=== PATIENT | male | born 1970 | race Caucasian/White ===

== ENCOUNTER 2017-06-01 08:59 | Day surgery (SDC) | payer OTHER ==
[2017-05-28 13:13] VITALS: BMI 29.8
[~2017-06-01 08:59] MED LIST: LACTATED RINGERS 1,000 ML IV SCH; LIDOCAINE 1% 20 ML VIAL (10MG/ML) FOR IV START INTRADERMA PRN
[2017-06-01 10:11] VITALS: TEMP 98.1
[2017-06-01] MEDS ORDERED: PROPOFOL 10 MG/ML 20 ML VIAL IV ONE (10:23)
[2017-06-01] MEDS ORDERED: LIDOCAINE 1% INJ 10MG/ML (20 ML MDV) ONE (10:23)
[2017-06-01 10:49] VITALS: RESP 16
--- NOTE | 2017-06-01 10:52 | P.PCN ---
Date of Procedure: 06/01/17 Preoperative Diagnosis: Postoperative Diagnosis: Procedure(s) Performed: Procedure: Total colonoscopy. Preoperative diagnosis: Screening for neoplasia, patient has family history of neoplastic polyps in his father. Postoperative diagnosis: Exam within normal limits. Preparation: HalfLytely prep. Sedation: Was provided by anesthesia. Brief clinical history: The patient is a 47-year-old male who is referred for this evaluation for screening for neoplasia age being his risk factor as well as family history of neoplastic polyps in his father. The patient has no abdominal complaints, bleeding or anemia. This would be his first colonoscopy. Procedure: With the patient on his left lateral decubitus position and after informed consent and adequate sedation, the perianal area was inspected and it did not show any fissures or fistulas. There were no masses felt on digital rectal examination. The Olympus CFQ 160L video colonoscope was then inserted in the rectum in the usual fashion and advanced to the cecum. The mucosa appeared healthy. No abnormalities were seen including any polyps or diverticular disease. I retroflexed the endoscope in the rectum before the endoscope was withdrawn. The patient tolerated the procedure well. Plan: The patient was reassured. With his family history I recommended repeat exam in 5 years. He will follow up with you as planned. Implants: Indications for Procedure: Operative Findings: Description of Procedure:
[2017-06-01 11:07] VITALS: PULSE 52
[2017-06-01 11:08] VITALS: BP 125/79
== END 2017-06-01 11:20 | disposition home or self-care (01) ==
LOC: ORWHC2ENDO 08:59
DX: Z12.11 Encounter for screening for malignant neoplasm of colon (principal); Z83.71 Family history of colonic polyps; I10 Essential (primary) hypertension; Z86.73 Personal history of transient ischemic attack (TIA), and cerebral infarction without residual deficits; Z79.899 Other long term (current) drug therapy
CPT/HCPCS: J2001; J2704; G0105

== ENCOUNTER 2018-08-11 14:43 | Emergency (ER) | payer BC, OTHER ==
[2018-08-11 14:52] VITALS: BP 137/93
--- NOTE | 2018-08-11 15:19 | ED ---
General Adult HPI - General Chief complaint: Extremity Problem,Nontraumatic Stated complaint: Poss dvt Time Seen by Provider: 08/11/18 14:58 Source: patient, RN notes reviewed Mode of arrival: wheelchair Limitations: no limitations - History of Present Illness Initial comments: Patient 48-year-old male presented to the emergency room today with a chief complaint of left thigh pain that started last approximately 3:30 in the morning. 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 He states he was sitting at his desk more last night. He states he was driving home from work and felt some discomfort to the left medial 5. He states that when he pushes he feels a burning sensation. Small spot that is firm. Patient denies any injury or trauma. He states he did try to follow-up with family doctor who is out of the office and was advised by the staff to come here to the emergency room. Patient denies any other complaint. Denies any history of blood clots. States is not on any blood thinner. Patient denies any recent fever, chills, shortness of breath, chest pain, back pain, abdominal pain, headaches or visual changes, or any other complaints. - Related Data Home Medications Medication Instructions Recorded Confirmed Losartan Potassium [Cozaar] 50 mg PO HS 05/07/15 08/11/18 Previous Rx's Medication Instructions Recorded Ibuprofen [Motrin] 600 mg PO Q6HR PRN #30 day 08/11/18 Allergies Allergy/AdvReac Type Severity Reaction Status Date / Time No Known Allergies Allergy Verified 08/11/18 16:33 Review of Systems ROS Statement: Those systems with pertinent positive or pertinent negative responses have been documented in the HPI. ROS Other: All systems not noted in ROS Statement are negative. Past Medical History Past Medical History: CVA/TIA, Hypertension Additional Past Medical History / Comment(s): POSSIBLE TIA 2 YRS AGO., TENDONITIS ELBOW. History of Any Multi-Drug Resistant Organisms: None Reported Past Surgical History: Hernia Repair, Orthopedic Surgery Additional Past Surgical History / Comment(s): RIGHT MENISCUS REPAIR, LEFT ROTATOR CUFF. Additional Past Anesthesia/Blood Transfusion Reaction / Comment(s): SPINAL HEADACHE Past Psychological History: No Psychological Hx Reported Smoking Status: Former smoker Past Alcohol Use History: Rare Past Drug Use History: None Reported - Past Family History Mother Family Medical History: Cancer Additional Family Medical History / Comment(s): lung cancer Father Family Medical History: Cancer Additional Family Medical History / Comment(s): renal Sister(s) Family Medical History: No Reported History Son(s) Family Medical History: No Reported History General Exam - General Exam Comments Initial Comments: General: The patient is awake and alert, in no distress, and does not appear acutely ill. Neck: The neck is supple, there is no tenderness or JVD. Cardiovascular: There is a regular rate and rhythm. No murmur, rub or gallop is appreciated. Respiratory: Lungs are clear to auscultation, respirations are non-labored, breath sounds are equal. No wheezes, stridor, rales, or rhonchi. Musculoskeletal: Patient does have a normal appearance of the left thigh with no obvious swelling, redness. There is no increased warmth. Small area medially that is firm on palpation but no fluctuance or sign for abscess. Patient shows full range of motion. No bony tenderness. Sensations are intact. pedal pulse is 2+. Neurological: A&O x 3. CN II-XII intact, There are no obvious motor or sensory deficits. Coordination appears grossly intact. Speech is normal. Skin: Skin is warm and dry and no rashes or lesions are noted. Psychiatric: Normal mood and affect. Limitations: no limitations Course Vital Signs 08/11/18 14:50 Temperature 98.1 F Pulse Rate 68 Respiratory 20 Rate Blood Pressure 137/93 O2 Sat by Pulse 98 Oximetry Medical Decision Making - Medical Decision Making Ultrasound REVIEW NEGATIVE FOR ANY EVIDENCE OF DVT. NO OTHER ACUTE ABNORMALITY. THERE IS NO REDNESS TO THE AREA. NO SIGN OF INFECTION. PATIENT IS ADVISED TO USE ANTI-INFLAMMATORIES FOR PAIN AND SYMPTOMS. ADVISED TO FOLLOW- UP FAMILY PHYSICIAN OVER THE NEXT 2 DAYS. ADVISED RETURN IF ANY SYMPTOMS INCREASE WORSEN OR FOR ANY CONCERNS. Disposition Clinical Impression: Leg pain Disposition: HOME SELF-CARE Condition: Good Instructions: Leg Pain (ED) Additional Instructions: Please use medication as discussed. Please follow-up with family doctor in the next 2 days of symptoms have not improved. Please return to emergency room if the symptoms increase or worsen or for any other concerns. Prescriptions: Ibuprofen [Motrin] 600 mg PO Q6HR PRN #30 day PRN Reason: Pain Is patient prescribed a controlled substance at d/c from ED?: No Referrals: Vernon Gutierres MD [Primary Care Provider] - 1-2 days Time of Disposition: 16:39
--- NOTE | 2018-08-11 16:27 | US ---
EXAMINATION TYPE: US venous doppler duplex LE LT DATE OF EXAM: 08/11/2018 3:14 PM COMPARISON: NONE CLINICAL HISTORY: Pain. SIDE PERFORMED: Left TECHNIQUE: The lower extremity deep venous system is examined utilizing real time linear array sonog hoang with graded compression, doppler sonography and color-flow sonography. VESSELS IMAGED: External Iliac Vein (EIV) Common Femoral Vein Deep Femoral Vein Greater Saphenous Vein * Femoral Vein Popliteal Vein Small Saphenous Vein * Proximal Calf Veins (* superficial vessels) There is normal flow, compressibility, vascular waveforms. Left Leg: Negative for DVT IMPRESSION: No evident deep venous thrombosis at or above the left knee.
[2018-08-11 16:46] VITALS: PULSE 70; RESP 18; TEMP 98.3
== END 2018-08-11 16:45 | disposition home or self-care (01) ==
LOC: EC 14:43
DX: M79.652 Pain in left thigh (principal); I10 Essential (primary) hypertension; Z86.73 Personal history of transient ischemic attack (TIA), and cerebral infarction without residual deficits; Z87.891 Personal history of nicotine dependence; Z79.899 Other long term (current) drug therapy
CPT/HCPCS: 99283

== ENCOUNTER 2019-03-31 12:41 | Observation (INO) | payer BC ==
[2019-03-31] MEDS ORDERED: SODIUM CHLORIDE 0.9% 1,000 ML IV ONE (12:47)
--- NOTE | 2019-03-31 12:52 | ED ---
Altered Mental Status HPI - General Stated Complaint: Confusion Time Seen by Provider: 03/31/19 12:41 Source: patient, EMS, RN notes reviewed Mode of arrival: EMS - History of Present Illness Initial Comments: This is a 49-year-old male with a prior history of TIA also history of hypertension who woke up around 10:30 this morning took a shower did has memory lapses within that timeframe. His did call EMS he was brought here for evaluation no trauma reported no fevers chills nausea vomiting sweats no blurry vision no recent change in medications or diet patient does not smoke or drink. No drugs reported. No palpitations no other modifying factors MD Complaint: altered mental status, confusion - Related Data Home Medications Medication Instructions Recorded Confirmed Losartan Potassium [Cozaar] 50 mg PO HS 05/07/15 03/31/19 Allergies Allergy/AdvReac Type Severity Reaction Status Date / Time No Known Allergies Allergy Verified 03/31/19 12:49 Review of Systems ROS Statement: Those systems with pertinent positive or pertinent negative responses have been documented in the HPI. ROS Other: All systems not noted in ROS Statement are negative. Past Medical History Past Medical History: CVA/TIA, Hypertension Additional Past Medical History / Comment(s): POSSIBLE TIA 2 YRS AGO., TENDONITIS ELBOW. History of Any Multi-Drug Resistant Organisms: None Reported Past Surgical History: Hernia Repair, Orthopedic Surgery Additional Past Surgical History / Comment(s): RIGHT MENISCUS REPAIR, LEFT ROTATOR CUFF. Additional Past Anesthesia/Blood Transfusion Reaction / Comment(s): SPINAL HEADACHE Past Psychological History: No Psychological Hx Reported Smoking Status: Former smoker Past Alcohol Use History: Rare Past Drug Use History: None Reported - Past Family History Mother Family Medical History: Cancer Additional Family Medical History / Comment(s): lung cancer Father Family Medical History: Cancer Additional Family Medical History / Comment(s): renal Sister(s) Family Medical History: No Reported History Son(s) Family Medical History: No Reported History General Exam - General Exam Comments Initial Comments: This is a well-developed well-nourished awake alert oriented times 3 male General appearance: alert, in no apparent distress Head exam: Present: atraumatic, normocephalic, normal inspection Eye exam: Present: normal appearance, PERRL, EOMI. Absent: scleral icterus, conjunctival injection, periorbital swelling ENT exam: Present: normal exam, mucous membranes moist Neck exam: Present: normal inspection, full ROM, other (No stridor JVD or bruits). Absent: tenderness, meningismus, lymphadenopathy Respiratory exam: Present: normal lung sounds bilaterally. Absent: respiratory distress, wheezes, rales, rhonchi, stridor Cardiovascular Exam: Present: regular rate, normal rhythm, normal heart sounds. Absent: systolic murmur, diastolic murmur, rubs, gallop, clicks GI/Abdominal exam: Present: soft, normal bowel sounds. Absent: distended, tenderness, guarding, rebound, rigid, bruit, pulsatile mass Extremities exam: Present: normal inspection, full ROM, normal capillary refill. Absent: tenderness, pedal edema, joint swelling, calf tenderness Back exam: Present: normal inspection Neurological exam: Present: alert, oriented X3, CN II-XII intact, motor sensory deficit (Very slight sensory deficits to the dorsal aspect of the right hand forearm compared to the left) Psychiatric exam: Present: normal affect, normal mood Skin exam: Present: warm, dry, intact, normal color. Absent: rash Course Vital Signs 03/31/19 03/31/19 03/31/19 12:45 12:49 13:00 Temperature 97.9 F Pulse Rate 67 78 60 Respiratory 18 18 20 Rate Blood Pressure 135/84 135/84 O2 Sat by Pulse 96 96 97 Oximetry 03/31/19 03/31/19 03/31/19 13:15 13:30 13:45 Temperature Pulse Rate 64 68 62 Respiratory 18 20 18 Rate Blood Pressure 135/87 131/95 153/93 O2 Sat by Pulse 96 97 97 Oximetry 03/31/19 03/31/19 03/31/19 14:00 14:15 14:30 Temperature Pulse Rate 68 63 66 Respiratory Rate Blood Pressure 145/84 137/90 146/94 O2 Sat by Pulse 96 96 96 Oximetry 03/31/19 15:00 Temperature Pulse Rate 65 Respiratory 18 Rate Blood Pressure 147/91 O2 Sat by Pulse 99 Oximetry Medical Decision Making - Medical Decision Making I did reevaluate patient on multiple occasions also symptoms have resolved he did later state he has some right facial numbness also resolved. Case is discussed with him and his will be admitted for evaluation of suspected TIA I did discuss case Dr. Rich. Neurology will be consulted - Lab Data Result diagrams: 03/31/19 13:06 03/31/19 13:06 Lab Results 03/31/19 03/31/19 03/31/19 Range/Units 13:06 13:06 13:06 WBC 5.2 (3.8-10.6) k/uL RBC 5.32 (4.30-5.90) m/uL Hgb 15.1 (13.0-17.5) gm/dL Hct 44.8 (39.0-53.0) % MCV 84.2 (80.0-100.0) fL MCH 28.4 (25.0-35.0) pg MCHC 33.7 (31.0-37.0) g/dL RDW 13.3 (11.5-15.5) % Plt Count 236 (150-450) k/uL Neutrophils % 59 % Lymphocytes % 27 % Monocytes % 8 % Eosinophils % 2 % Basophils % 0 % Neutrophils # 3.1 (1.3-7.7) k/uL Lymphocytes # 1.4 (1.0-4.8) k/uL Monocytes # 0.4 (0-1.0) k/uL Eosinophils # 0.1 (0-0.7) k/uL Basophils # 0.0 (0-0.2) k/uL PT (9.0-12.0) sec INR (<1.2) APTT (22.0-30.0) sec Sodium 140 (137-145) mmol/L Potassium 4.0 (3.5-5.1) mmol/L Chloride 105 (98-107) mmol/L Carbon Dioxide 25 (22-30) mmol/L Anion Gap 10 mmol/L BUN 12 (9-20) mg/dL Creatinine 0.92 (0.66-1.25) mg/dL Est GFR (CKD-EPI)AfAm >90 (>60 ml/min/1.73 sqM) Est GFR (CKD-EPI)NonAf >90 (>60 ml/min/1.73 sqM) Glucose 109 H (74-99) mg/dL Calcium 8.7 (8.4-10.2) mg/dL Magnesium 2.1 (1.6-2.3) mg/dL Total Bilirubin 0.9 (0.2-1.3) mg/dL AST 36 (17-59) U/L ALT 53 (21-72) U/L Alkaline Phosphatase 77 (38-126) U/L Ammonia 16 (<30) umol/L Creatine Kinase 224 H (55-170) U/L Troponin I (0.000-0.034) ng/mL Total Protein 6.8 (6.3-8.2) g/dL Albumin 4.2 (3.5-5.0) g/dL Urine Color Urine Appearance (Clear) Urine pH (5.0-8.0) Ur Specific [place] (1.001-1.035) Urine Protein (Negative) Urine Glucose (UA) (Negative) Urine Ketones (Negative) Urine Blood (Negative) Urine Nitrite (Negative) Urine Bilirubin (Negative) Urine Urobilinogen (<2.0) mg/dL Ur Leukocyte Esterase (Negative) Urine Opiates Screen (NotDetected) Ur Oxycodone Screen (NotDetected) Urine Methadone Screen (NotDetected) Ur Propoxyphene Screen (NotDetected) Ur Barbiturates Screen (NotDetected) U Tricyclic Antidepress (NotDetected) Ur Phencyclidine Scrn (NotDetected) Ur Amphetamines Screen (NotDetected) U Methamphetamines Scrn (NotDetected) U Benzodiazepines Scrn (NotDetected) Urine Cocaine Screen (NotDetected) U Marijuana (THC) Screen (NotDetected) 03/31/19 03/31/19 03/31/19 Range/Units 13:06 13:06 14:50 WBC (3.8-10.6) k/uL RBC (4.30-5.90) m/uL Hgb (13.0-17.5) gm/dL Hct (39.0-53.0) % MCV (80.0-100.0) fL MCH (25.0-35.0) pg MCHC (31.0-37.0) g/dL RDW (11.5-15.5) % Plt Count (150-450) k/uL Neutrophils % % Lymphocytes % % Monocytes % % Eosinophils % % Basophils % % Neutrophils # (1.3-7.7) k/uL Lymphocytes # (1.0-4.8) k/uL Monocytes # (0-1.0) k/uL Eosinophils # (0-0.7) k/uL Basophils # (0-0.2) k/uL PT 10.7 (9.0-12.0) sec INR 1.0 (<1.2) APTT 25.8 (22.0-30.0) sec Sodium (137-145) mmol/L Potassium (3.5-5.1) mmol/L Chloride (98-107) mmol/L Carbon Dioxide (22-30) mmol/L Anion Gap mmol/L BUN (9-20) mg/dL Creatinine (0.66-1.25) mg/dL Est GFR (CKD-EPI)AfAm (>60 ml/min/1.73 sqM) Est GFR (CKD-EPI)NonAf (>60 ml/min/1.73 sqM) Glucose (74-99) mg/dL Calcium (8.4-10.2) mg/dL Magnesium (1.6-2.3) mg/dL Total Bilirubin (0.2-1.3) mg/dL AST (17-59) U/L ALT (21-72) U/L Alkaline Phosphatase (38-126) U/L Ammonia (<30) umol/L Creatine Kinase (55-170) U/L Troponin I <0.012 (0.000-0.034) ng/mL Total Protein (6.3-8.2) g/dL Albumin (3.5-5.0) g/dL Urine Color Urine Appearance (Clear) Urine pH (5.0-8.0) Ur Specific [place] (1.001-1.035) Urine Protein (Negative) Urine Glucose (UA) (Negative) Urine Ketones (Negative) Urine Blood (Negative) Urine Nitrite (Negative) Urine Bilirubin (Negative) Urine Urobilinogen (<2.0) mg/dL Ur Leukocyte Esterase (Negative) Urine Opiates Screen Not Detected (NotDetected) Ur Oxycodone Screen Not Detected (NotDetected) Urine Methadone Screen Not Detected (NotDetected) Ur Propoxyphene Screen Not Detected (NotDetected) Ur Barbiturates Screen Not Detected (NotDetected) U Tricyclic Antidepress Not Detected (NotDetected) Ur Phencyclidine Scrn Not Detected (NotDetected) Ur Amphetamines Screen Not Detected (NotDetected) U Methamphetamines Scrn Not Detected (NotDetected) U Benzodiazepines Scrn Not Detected (NotDetected) Urine Cocaine Screen Not Detected (NotDetected) U Marijuana (THC) Screen Not Detected (NotDetected) 03/31/19 Range/Units 14:50 WBC (3.8-10.6) k/uL RBC (4.30-5.90) m/uL Hgb (13.0-17.5) gm/dL Hct (39.0-53.0) % MCV (80.0-100.0) fL MCH (25.0-35.0) pg MCHC (31.0-37.0) g/dL RDW (11.5-15.5) % Plt Count (150-450) k/uL Neutrophils % % Lymphocytes % % Monocytes % % Eosinophils % % Basophils % % Neutrophils # (1.3-7.7) k/uL Lymphocytes # (1.0-4.8) k/uL Monocytes # (0-1.0) k/uL Eosinophils # (0-0.7) k/uL Basophils # (0-0.2) k/uL PT (9.0-12.0) sec INR (<1.2) APTT (22.0-30.0) sec Sodium (137-145) mmol/L Potassium (3.5-5.1) mmol/L Chloride (98-107) mmol/L Carbon Dioxide (22-30) mmol/L Anion Gap mmol/L BUN (9-20) mg/dL Creatinine (0.66-1.25) mg/dL Est GFR (CKD-EPI)AfAm (>60 ml/min/1.73 sqM) Est GFR (CKD-EPI)NonAf (>60 ml/min/1.73 sqM) Glucose (74-99) mg/dL Calcium (8.4-10.2) mg/dL Magnesium (1.6-2.3) mg/dL Total Bilirubin (0.2-1.3) mg/dL AST (17-59) U/L ALT (21-72) U/L Alkaline Phosphatase (38-126) U/L Ammonia (<30) umol/L Creatine Kinase (55-170) U/L Troponin I (0.000-0.034) ng/mL Total Protein (6.3-8.2) g/dL Albumin (3.5-5.0) g/dL Urine Color Light Yellow Urine Appearance Clear (Clear) Urine pH 7.0 (5.0-8.0) Ur Specific [place] 1.006 (1.001-1.035) Urine Protein Negative (Negative) Urine Glucose (UA) Negative (Negative) Urine Ketones Negative (Negative) Urine Blood Negative (Negative) Urine Nitrite Negative (Negative) Urine Bilirubin Negative (Negative) Urine Urobilinogen <2.0 (<2.0) mg/dL Ur Leukocyte Esterase Negative (Negative) Urine Opiates Screen (NotDetected) Ur Oxycodone Screen (NotDetected) Urine Methadone Screen (NotDetected) Ur Propoxyphene Screen (NotDetected) Ur Barbiturates Screen (NotDetected) U Tricyclic Antidepress (NotDetected) Ur Phencyclidine Scrn (NotDetected) Ur Amphetamines Screen (NotDetected) U Methamphetamines Scrn (NotDetected) U Benzodiazepines Scrn (NotDetected) Urine Cocaine Screen (NotDetected) U Marijuana (THC) Screen (NotDetected) - EKG Data -: EKG Interpreted by Me EKG shows normal: sinus rhythm (Normal sinus rhythm of 68. Interval 146 QRS duration 92 QT since QTC 46/431 st-t wave changes) - Radiology Data Radiology results: report reviewed (I did review the imaging and report no acute findings.), image reviewed Disposition Clinical Impression: Transient ischemic attack (TIA) Disposition: ADMITTED IP TO THIS [facility] Condition: Stable Referrals: Vernon Gutierres MD [Primary Care Provider] - 1-2 days
[2019-03-31 13:20] LABS: Basophils % (A) 0 %; Eosinophils # (A) 0.1 k/uL (0-0.7); Eosinophils % (A) 2 %; HCT 44.8 % (39.0-53.0); HGB 15.1 gm/dL (13.0-17.5); Lymphocytes # (A) 1.4 k/uL (1.0-4.8); Lymphocytes % (A) 27 %; MCH 28.4 pg (25.0-35.0); MCHC 33.7 g/dL (31.0-37.0); MCV 84.2 fL (80.0-100.0); Mean Platelet Volume 6.9; Monocytes # (A) 0.4 k/uL (0-1.0); Monocytes % (A) 8 %; Neutrophils # (A) 3.1 k/uL (1.3-7.7); Neutrophils % (A) 59 %; Platelet Count 236 k/uL (150-450); RBC 5.32 m/uL (4.30-5.90); RDW 13.3 % (11.5-15.5); WBC 5.2 k/uL (3.8-10.6)
[2019-03-31 13:29] LABS: ALT 53 U/L (21-72); AST 36 U/L (17-59); African American GFR (CKD) >90 (>60 ml/min/1.73 sqM); Albumin 4.2 g/dL (3.5-5.0); Alkaline Phosphatase 77 U/L (38-126); Anion Gap 10 mmol/L; Blood Urea Nitrogen 12 mg/dL (9-20); Calcium 8.7 mg/dL (8.4-10.2); Carbon Dioxide 25 mmol/L (22-30); Chloride 105 mmol/L (98-107); Creatine Kinase 224 U/L (55-170); Glucose 109 mg/dL (74-99); Magnesium 2.1 mg/dL (1.6-2.3); Partial Thromboplastin Time 25.8 sec (22.0-30.0); Prothrombin Time 10.7 sec (9.0-12.0); Sodium 140 mmol/L (137-145); Total Bilirubin 0.9 mg/dL (0.2-1.3); Total Protein 6.8 g/dL (6.3-8.2)
--- NOTE | 2019-03-31 14:00 | XR ---
EXAMINATION TYPE: XR chest 2V DATE OF EXAM: 03/31/2019 COMPARISON: Prior chest x-ray 05/06/2015 HISTORY: Altered mental status TECHNIQUE: Frontal and lateral views of the chest are obtained. FINDINGS: There is no focal air space opacity, pleural effusion, or pneumothorax seen. The cardiac silhouette size is within normal limits. Right hemidiaphragm is elevated. There are overlying cardiac leads. Minimal strand-like densities at the left costophrenic angle likely due to scarring, stable The osseous structures are intact. IMPRESSION: No acute cardiopulmonary process.
--- NOTE | 2019-03-31 14:00 | CT ---
EXAMINATION TYPE: CT brain wo con DATE OF EXAM: 03/31/2019 COMPARISON: 05/06/2015 HISTORY: Confusion CT DLP: 1099.4 mGycm Automated exposure control for dose reduction was used. FINDINGS: No midline shift or mass effect. Ventricular system is midline. Calvarium intact. Mild changes of chr onic ethmoidal sinusitis. Cerebellar tonsils low-lying in position. No acute hemorrhage. IMPRESSION: NO ACUTE HEMORRHAGE OR MASS EFFECT. CEREBELLAR TONSILS LOW-LYING IN POSITION. FOLLOW-UP MRI COULD BE OBTAINED TO ASSESS FOR CHIARI MALFORMATION.
[2019-03-31 15:11] LABS: Appearance,Urine Clear (Clear); Bilirubin,Urine Negative (Negative); Blood,Urine Negative (Negative); Color,Urine Light Yellow; Glucose,Urine (UA) Negative (Negative); Ketones,Urine Negative (Negative); Leukocyte Esterase,Urine Negative (Negative); Nitrite,Urine Negative (Negative); Protein,Urine Negative (Negative); Specific Gravity,Urine 1.006 (1.001-1.035); Urobilinogen,Urine <2.0 mg/dL (<2.0)
[2019-03-31 15:21] LABS: Amphetamine Screen,Urine Not Detected (NotDetected); Barbiturate Screen,Urine Not Detected (NotDetected); Benzodiazepines Screen,Urine Not Detected (NotDetected); Cocaine Screen,Urine Not Detected (NotDetected); Methadone Screen, Urine Not Detected (NotDetected); Opiate Screen,Urine Not Detected (NotDetected); Oxycodone Screen, Urine Not Detected (NotDetected); Phencyclidine Screen,Urine Not Detected (NotDetected); Tricyclic Antidepressant,Urine Not Detected (NotDetected); Urn Cannabinoid Scrn Not Detected (NotDetected)
[2019-03-31] MEDS ORDERED: NALOXONE 0.4 MG/ML 1 ML VIAL IV PRN (16:13)
[2019-03-31] MEDS: LOSARTAN 50 MG TAB PO SCH (20:16)
[2019-03-31] MEDS: SODIUM CHLORIDE 0.9% 1,000 ML IV SCH (20:48)
[2019-04-01] MEDS: SODIUM CHLORIDE 0.9% 1,000 ML IV SCH (08:21)
[2019-04-01] MEDS: ASPIRIN 325 MG TAB PO SCH (12:43)
[2019-04-01 15:27] VITALS: RESP 16
--- NOTE | 2019-04-01 17:23 | MR ---
EXAMINATION TYPE: MR brain wo/w con DATE OF EXAM: 04/01/2019 COMPARISON: HISTORY: having confusion today. H/O TIA. Transient global amnesia. TECHNIQUE: Multiplanar, multisequence images of the brain and brainstem is performed without and with IV contras t, utilizing 11 mL intravenous Gadavist . FINDINGS: On the T2 and FLAIR images there are small foci of increased signal at the arriola-white matter junction of both frontal lobes that measure up to 5 mm. There is no cortical edema. There is no midline shift . There is no mass effect. Ventricles have normal size. Brainstem is intact. The cerebellum is intact . Corpus callosum appears normal. Sella turcica is normal. There is no evidence of cortical infarct. There is normal contrast opacification of the venous sinuses. There is arterial flow in the anterior middle and posterior cerebral arteries. There is no pathologic enhancement. IMPRESSION: Bilateral white matter scattered tiny foci in both frontal lobes. Total number is approxi mately 10. This could relate to microvascular ischemia. No evidence of cortical infarct. This is not a typical pattern of demyelinating disease.
--- NOTE | 2019-04-01 18:40 | ECHOF ---
Referral Reason:transient global amnesia MEASUREMENTS -------- HEIGHT: 180.3 cm WEIGHT: 110.7 kg BP: RVIDd: 3.4 cm (< 3.3) IVSd: 1.5 cm (0.6 - 1.1) LVIDd: 4.6 cm (3.9 - 5.3) LVPWd: 1.8 cm (0.6 - 1.1) IVSs: 2.4 cm LVIDs: 2.0 cm LVPWs: 2.2 cm Ao Diam: 3.1 cm (2.0 - 3.7) AV Cusp: 2.0 cm (1.5 - 2.6) LA Diam: 4.1 cm (2.7 - 3.8) MV EXCURSION: 15.249 mm (> 18.000) MV EF SLOPE: 94 mm/s (70 - 150) EPSS: 0.5 cm MV E Bro: 0.66 m/s MV DecT: 202 ms MV A Bro: 0.74 m/s MV E/A Ratio: 0.90 RAP: 5.00 mmHg RVSP: 12.70 mmHg FINDINGS -------- Sinus rhythm. This was a technically difficult study with suboptimal views. The left ventricular size is normal. There is moderate concentric left ventricular hypertrophy. O verall left ventricular systolic function is normal with, an EF between 55 - 60 %. The right ventricle is mildly enlarged. The left atrial size is normal. The right atrial size is normal. Lumason used Interatrial and interventricular septum intact. The aortic valve is trileaflet, and appears structurally normal. No aortic stenosis or regurgitation. Mild mitral annular calcification present. There is trace mitral regurgitation. Mild tricuspid regurgitation present. There is no evidence of pulmonary hypertension. The right v entricular systolic pressure, as measured by Doppler, is 12.70mmHg. The pulmonic valve was not well visualized. There is no pulmonic regurgitation present. The aortic root size is normal. Normal inferior vena cava with normal inspiratory collapse consistent with estimated right atrial pre ssure of 5 mmHg. There is no pericardial effusion. CONCLUSIONS -------- 1. Sinus rhythm. 2. This was a technically difficult study with suboptimal views. 3. The left ventricular size is normal. 4. There is moderate concentric left ventricular hypertrophy. 5. Overall left ventricular systolic function is normal with, an EF between 55 - 60 %. 6. The right ventricle is mildly enlarged. 7. The left atrial size is normal. 8. Lumason used 9. The aortic valve is trileaflet, and appears structurally normal. No aortic stenosis or regurgitati on. 10. Mild mitral annular calcification present. 11. There is trace mitral regurgitation. 12. Mild tricuspid regurgitation present. 13. There is no evidence of pulmonary hypertension. 14. There is no pulmonic regurgitation present. 15. The aortic root size is normal. 16. Normal inferior vena cava with normal inspiratory collapse consistent with estimated right atrial pressure of 5 mmHg. 17. There is no pericardial effusion. JUNIOR NET DEVELOPER: Cortney Valadez RDCS
--- NOTE | 2019-04-01 18:41 | CONS ---
CONSULTATION DATE OF SERVICE: 04/01/2019 REFERRING PHYSICIAN: Dr. Rich HISTORY OF PRESENT ILLNESS: Thank you for allowing me to evaluate John Shelton, who is a 49-year-old right- handed white male who presented to [facility] on 03/31/2019 following an episode of memory difficulties. The patient states that he got up at 10:30 a.m. and went through his normal routine, let the dogs out, had a cup of coffee, and the last thing he can recollect is getting into the shower. The next thing he remembers is walking out the back door where EMS was coming up, as his had called them, and the patient was taken to the hospital for further evaluation and treatment. The patient's estimates an hour and a half had passed in that period of time. The patient describes this as a "loss of time." During the period he cannot recollect, he apparently texted his that he did not feel right and told her to come home now. His states that it was unusual for him to spell the word "right" on the text incorrectly. She called him over the phone and states he sounded normal, there was no dysarthria, although he sounded mildly confused. He told her to call 911, as he did not seem to know how to do this on his own. In the emergency room, the patient was manifesting repetitive questioning, with his stating that he would ask a question and 10 minutes later asked the same question again, and has never done this before. The patient's states that several hours had passed in the emergency room before he returned to baseline. The patient does not believe he injured himself during the period of time he cannot recollect, but he was at home alone. There was no associated headache, urine/stool incontinence or tongue- biting. There was also no associated vertigo, diplopia, dysarthria, difficulty chewing/swallowing or focal weakness/numbness in the extremities. The patient states he did note a mild bit of numbness involving the right cheek without extremity involvement. There was no facial droop noted by the patient's . There were no associated hiccups. The patient denies history of migraine or seizure and was not taking aspirin or other anti-platelet/anti-coagulant medication at the time of this event. The patient reports a history of a "TIA" which occurred in April of 2015, when patient presented with a "bad" headache and numbness involving the left upper extremity. The patient was seen by Dr. Juarez of Neurology at that time. Dr. Juarez's note indicates the patient also had numbness involving the left scalp. He reported at the time that he was mildly nauseated but apparently did not vomit. He had a carotid ultrasound completed which demonstrated no hemodynamically significant stenosis on either side, antegrade flow in the vertebral arteries, and the patient was discharged with a recommendation to initiate aspirin. The patient states he took that for a period of time, but subsequently this was discontinued. The patient states that his primary care physician has been trying to find a statin he can tolerate, but this has been difficult, as the patient develops myalgias. ALLERGIES: NO KNOWN DRUG ALLERGIES. HOME MEDICATIONS: Losartan. PAST MEDICAL HISTORY: 1. Hypertension. 2. Hyperlipidemia. PAST SURGICAL HISTORY: 1. Hernia repair. 2. Left rotator cuff repair. 3. Right knee surgery. SOCIAL HISTORY: The patient quit smoking 23 years ago and reports "very little" alcohol consumption. He denied illicit drug use. He is with 3 children and lives in a house with his and daughter. 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 FAMILY HISTORY: There is no family history of migraine. Mother at 56 and reportedly had TIA/strokes at 46 and 52 and of lung cancer. Father had kidney cancer. His paternal grandmother had dementia of Alzheimer's type. REVIEW OF SYSTEMS: Fourteen systems are reviewed, and no additional complaints are identified. The review of systems is documented in the history and physical. PHYSICAL EXAMINATION: Upon my arrival in the patient's room, he was lying in bed and his was at the bedside. He is an accurate historian. Affect is normal. He was jovial and appears stated age. VITAL SIGNS: Blood pressure is 134/83 with pulse of 63, respiratory rate 20, temperature 98.1. Highest blood pressure during this hospitalization is 143/99. Weight is 110.7 kg on a 6-foot 0-inch frame. SKIN AND EXTREMITIES: Normal. HEAD AND NECK: No tenderness or signs of trauma. Neck is supple without meningeal signs. Arteries are nontender and without bruits. HEART: Regular rate and rhythm. HIGHER CORTICAL FUNCTION: MENTAL STATUS: Patient was alert and oriented to self. He knew he was at "[place]." He knew the city, year, month, day of the week, and could name the current president. He was able to name, repeat and read. There was no right and left disorientation, finger agnosia, extinction to double simultaneous stimulation or dysarthria. CRANIAL NERVES II THROUGH XII: II: Pupils are equal and reactive to light symmetrically. No afferent pupillary defect. Visual wyatt are intact to confrontation. III, IV, : No ptosis. Extraocular movements were full. No nystagmus. V: Pinprick, light touch intact in all 3 divisions. Motor 5 intact. VII: No facial asymmetry or weakness. He had acuity intact to finger rub. IX, X: Palate aranza in the midline. XI: Trapezius strength intact. XII: Tongue protruded midline without fasciculation or atrophy. No tongue bite was noted. MOTOR EXAMINATION: No pronator drift. Normal bulk and tone is noted in all major muscle groups with no involuntary movements noted. Strength is 5/5 throughout. Sensory intact to pinprick and light touch in all extremities. REFLEXES: Right side listed first. Biceps 1,1; brachioradialis 1,1; triceps 1,1; patellae 1,1; ankle 2,2. Plantar response is flexor bilaterally. Jara's is absent. COORDINATION: Tsuoqm-li-eebu, doem-ga-hjuq movements are intact. Rapid alternating movements are symmetric with finger tapping. DIAGNOSTIC TESTING: The patient had a CT scan of the brain completed without contrast in the emergency room which demonstrated no acute pathology. There were felt to be low-lying tonsils, raising question of Chiari malformation. Chest x-ray revealed no acute pathology. The patient's lab work demonstrates a white blood cell count of 5.2 with a hemoglobin of 15.1, platelet count 236. Sodium 140, potassium 4.0, BUN 12 with a creatinine of 0.92. INR 1.0. Calcium 8.7, magnesium 2.1. ALT 53, AST 36, ammonia 16. CPK 224. Troponin negative. Urinalysis negative. Urine toxicology screen negative. Telemetry, per nursing staff, has demonstrated normal sinus rhythm. IMPRESSION: 1. Episode of anterograde memory difficulties with repetitive questioning, consistent with transient global amnesia. This spell occurred following a shower, as has been reported in the literature. 2. Episode of left upper extremity numbness associated with a "bad" headache in April of 2015, which was attributed to transient ischemic attack. 3. Intolerance to statins secondary to myalgias. 4. Reported low-lying tonsils on CT, raising question of Chiari malformation. This will be further evaluated with MRI. 5. Medical problems, including hypertension and hyperlipidemia. RECOMMENDATIONS: 1. I discussed my impression and plan with the patient and his , and they expressed understanding. I reassured the patient that his neurologic examination appears well maintained. 2. Typically following transient global amnesia, workup includes MRI of the brain with and without contrast, EEG, and noninvasive stroke workup including carotid ultrasound, echocardiogram and telemetry. Typically, workup is unrevealing, and this is usually a monophasic event. 3. Will reinitiate aspirin 325 mg daily. The patient has apparently been working with his primary care physician to find a statin which he can tolerate. 4. My temporary neurology coverage ends today; however, if the workup detailed above is unrevealing, would recommend aspirin, risk factor modification, weight loss and a regular exercise program. 5. Even if a Chiari malformation is identified on MRI, this would represent an incidental finding and not associated with the presenting symptoms. Thank you for allowing me to participate in the care of your patient. MMODL / IJN: [id number] / BILL
--- NOTE | 2019-04-01 19:38 | EEG ---
ELECTROENCEPHALOGRAM REPORT DATE OF SERVICE: 04/01/2019 REFERRING PHYSICIAN: Dr. Rich. CLINICAL HISTORY: This is an 18-channel EEG with one-channel EKG recording on a 49-year-old male with episode of transient global amnesia. This study is being done to rule out epileptiform discharges. FINDINGS: Wakefulness, drowsiness, and stage II sleep were obtained during the recording. In the maximal awake state, a moderate-voltage 10 Hz posterior-dominant background rhythm was demonstrated. This is regulated, sustained, symmetric and reactive to eye opening. Low-voltage faster frequencies were best seen over the frontal central head regions. Photic stimulation produced a symmetric driving response and a few flash frequencies. Drowsiness and states of sleep were manifested by attenuation of the posterior-dominant background rhythm and the appearance of symmetric vertex waves/sleep spindles. No epileptiform discharges or focal lateralizing features are present. SUMMARY: Normal awake, drowsy and sleep EEG. INTERPRETATION: This EEG is within normal limits for age. No epileptiform discharges or focal lateralizing features are present. MMODL / IJN: [id number] /
--- NOTE | 2019-04-01 20:28 | US ---
EXAMINATION TYPE: US carotid duplex BILAT DATE OF EXAM: 04/01/2019 COMPARISON: NONE CLINICAL HISTORY: transient global amnesia. TIA EXAM MEASUREMENTS: RIGHT: Peak Systolic Velocity (PSV) cm/sec ----- Right CCA: 111.3 ----- Right ICA: 104.0 ----- Right ECA: 164.1 ICA/CCA ratio: 0.9 RIGHT: End Diastole cm/sec ----- Right CCA: 28.5 ----- Right ICA: 34.3 ----- Right ECA: 23.6 LEFT: Peak Systolic Velocity (PSV) cm/sec ----- Left CCA: 122.1 ----- Left ICA: 97.9 ----- Left ECA: 97.9 ICA/CCA ratio: 0.8 LEFT: End Diastole cm/sec ----- Left CCA: 22.0 ----- Left ICA: 23.6 ----- Left ECA: 12.3 VERTEBRALS (direction of flow): Right Vertebral: Antegrade Left Vertebral: Antegrade Rhythm: Normal IMPRESSION: There is antegrade flow in the vertebral arteries. The images and measurements suggest l ess than 20% stenosis in both internal carotid arteries. Criteria for Assigning % of Stenosis / Diameter reduction (Estimation based on the indirect measurements of the internal carotid artery velocities (ICA PSV). 1. Normal (no stenosis)=ICA PSV < 125 cm/s: ratio < 2.0: ICA EDV<40 cm/s. 2. Less than 50% stenosis=ICA PSV < 125 cm/s: ratio < 2.0: ICA EDV<40 cm/s. 3. 50 to 69% stenosis=ICA PSV of 125 to 230 cm/s: ration 2.0 ? 4.0: ICA EDV 40-100 cm/s. 4. Greater than 70% stenosis to near occlusion= ICA PSV > 230 cm/s: ratio > 4.0: ICA EDV > 100 cm/s. 5. Near occlusion= ICA PSV velocities may be low or undetectable: variable ratio and ICA EDV. 6. Total occlusion=unable to detect flow.
[2019-04-01] MEDS: LOSARTAN 50 MG TAB PO SCH (20:35)
--- NOTE | 2019-04-01 20:46 | P.HPIM ---
History of Present Illness H&P Date: 04/01/19 Chief Complaint: Acute forgetfulness History of presenting complaint: This is a pleasant 49-year-old patient of Dr. Rosenberg. Chronic stable medical conditions include hypertension, hypercholesterolemia, obesity. Patient had an episode where he could not remember the events for about half an hour only remembers coming out of the house. He does text his . Apparently the spelling was ordered and collected and is very particular about the same. Nose no change in speech no change in vision no weakness after episode patient reverted back to his normal self. Patient admitted for the same. The cause of his job schedule His sleep pattern is not right. Has had a TIA in the past. When I saw the patient earlier today is feeling back to his normal self. Review of systems: GEN.: Tired] EYES: None HEENT: None NECK: None RESPIRATORY: None CARDIOVASCULAR: None GASTROINTESTINAL: None GENITOURINARY: None MUSCULOSKELETAL: None LYMPHATICS: None HEMATOLOGICAL: None PSYCHIATRY: None NEUROLOGICAL: As above Past medical history: TIA, hypertension, hypercholesterolemia. 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 Alc ohol rarely. Denies use of recreational drugs Family history Lung cancer Physical examination: VITAL SIGNS: 97.9, 78, 18, 135-84, 96% room air GENERAL: BMI 33.1, sitting up, comfortable. EYES: Pupils equal. Conjunctiva normal. HEENT: External appearance of nose and ears normal, oral cavity grossly normal. NECK: JVD not raised; masses not palpable. HEART: First and second heart sounds are normal; no edema. LUNGS: Respiratory rate normal; clear to auscultation. ABDOMEN: Soft, nontender, liver spleen not palpable, no masses palpable. LYMPHATICS: No lymph nodes palpable in the axilla and neck. PSYCH: Alert and oriented x3; mood and affect slightly anxiousl. NEUROLOGICAL: Cranial nerves grossly intact; no facial asymmetry, power and sensation grossly intact. Investigations reviewed in the clinical context: Chest x-ray film personally reviewed by me shows some elevation of the right diaphragm otherwise no obvious acute findings Computed tomography scan of the brain shows no obvious acute findings EKG tracing personally reviewed by me shows no abnormalities Assessment: -This is a patient had a half an hour to 1 hour loss of memory for events. These findings are clinically supportive of the diagnosis of transient global amnesia which is like a TIA. This factors being the same. Patient had a TIA in the past. Patient have an EEG done to rule out underlying seizure activity. -Essential hypertension -Hypercholesterolemia -Obesity BMI 33.1 - chronic sleep deprivation from altered work schedule Plan: Care was discussed at length with the patient. We'll look at patient's cholesterol and blood pressure closely. EEG is being done. Did discuss the patient about getting enough sleep. Lovenox for DVT prophylaxis. Past Medical History Past Medical History: CVA/TIA, Hypertension Additional Past Medical History / Comment(s): POSSIBLE TIA 2 YRS AGO., TENDONITIS ELBOW. History of Any Multi-Drug Resistant Organisms: None Reported Past Surgical History: Hernia Repair, Orthopedic Surgery Additional Past Surgical History / Comment(s): RIGHT MENISCUS REPAIR, LEFT ROTATOR CUFF. Past Anesthesia/Blood Transfusion Reactions: No Reported Reaction Additional Past Anesthesia/Blood Transfusion Reaction / Comment(s): SPINAL HEADACHE Past Psychological History: No Psychological Hx Reported Smoking Status: Former smoker Past Alcohol Use History: Rare Additional Past Alcohol Use History / Comment(s): QUIT SMOKING 21 YEARS AGO. SMOKED APPROX 10 YEARS, 1PPD. Past Drug Use History: None Reported - Past Family History Mother Family Medical History: Cancer Additional Family Medical History / Comment(s): lung cancer Father Family Medical History: Cancer Additional Family Medical History / Comment(s): renal Sister(s) Family Medical History: No Reported History Son(s) Family Medical History: No Reported History Medications and Allergies Home Medications Medication Instructions Recorded Confirmed Type Losartan Potassium [Cozaar] 50 mg PO HS 05/07/15 03/31/19 History Allergies Allergy/AdvReac Type Severity Reaction Status Date / Time No Known Allergies Allergy Verified 03/31/19 12:49 Physical Exam Vitals: Vital Signs Temp Pulse Pulse Resp BP BP Pulse Ox 04/01/19 11:29 98.1 F 63 20 134/83 96 04/01/19 08:00 98 F 61 16 136/80 97 04/01/19 04:00 98.8 F 61 16 105/55 97 03/31/19 23:40 98.3 F 73 18 112/57 97 03/31/19 19:30 98.2 F 66 16 149/82 96 03/31/19 17:50 98.6 F 71 16 147/99 97 03/31/19 17:00 98.4 F 79 18 129/94 95 03/31/19 16:00 70 18 126/82 95 03/31/19 15:00 65 18 147/91 99 03/31/19 14:30 66 146/94 96 Intake and Output 03/31/19 04/01/19 04/01/19 22:59 06:59 14:59 Intake Total 627 314 Balance 627 314 Intake: IV 150 160 Sodium Chloride 0.9% 1, 150 160 000 ml @ 75 mls/hr IV . [id number] ONE Rx#:[id number] Oral 477 154 Other: Voiding Method Toilet Toilet Toilet # Voids 1 Weight 110.7 kg Results CBC & Chem 7: 03/31/19 13:06 03/31/19 13:06 Thrombosis Risk Factor Assmnt - Choose All That Apply Any of the Below Risk Factors Present?: Yes Each Factor Represents 1 point: Obesity (BMI >25) Other Risk Factors: No Other congenital or acquired thrombophilia - If yes, enter type in comment: No Each Risk Factor Represents 5 Points: Stroke (< 1 month) Thrombosis Risk Factor Assessment Total Risk Factor Score: 6 Thrombosis Risk Factor Assessment Level: High Risk
[2019-04-02 04:24] VITALS: TEMP 98.4
[2019-04-02] MEDS: ASPIRIN 325 MG TAB PO SCH (08:15)
[2019-04-02 08:18] VITALS: BP 136/83; PULSE 59
--- NOTE | 2019-04-02 23:24 | P.DS ---
Providers Date of admission: 03/31/19 16:13 Expected date of discharge: 04/02/19 Attending physician: Pedro Rich Consults: 03/31/19 16:14 Consult Physician Routine Consulting Provider: Jhonatan Huerta Consult Reason/Comments: TIA Do you want consulting provider notified?: Yes Primary care physician: Greg Gutierres [facility] Course: Discharge diagnoses: -Transient global amnesia which is like TIA -Essential hypertension -Hypercholesterolemia -Obesity BMI 33.1 - chronic sleep deprivation from altered work schedule Consultation: Dr. Huerta from neurology Hospital course: This patient presented with amnesia with lasted about 30 minutes. Had no other focal neurological symptoms. Patient did have a 2-D echocardiogram, carotid Doppler, MRI, EEG and a computed tomography scan of brain. Only the MRI did show some bilateral white matter scattered tiny foci in both the frontal nose. Nonspecific finding. Patient is back to his normal self. I did queen's counsel the patient to make sure he gets good rest as does not sleep deprived himself. Questions were answered. On examination: 98.4, 73, 16, 136-74, 97% No focal neurological signs Disposition: Home Patient Condition at Discharge: Stable Plan - Discharge Summary New Discharge Prescriptions: New Aspirin 81 mg PO DAILY #30 chewable Chlorthalidone 25 mg PO DAILY #1 tab Atorvastatin [Lipitor] 40 mg PO DAILY #30 tablet Continue Losartan Potassium [Cozaar] 50 mg PO HS Discharge Medication List Losartan Potassium [Cozaar] 50 mg PO HS 05/07/15 [History] Aspirin 81 mg PO DAILY #30 chewable 04/02/19 [Rx] Atorvastatin [Lipitor] 40 mg PO DAILY #30 tablet 04/02/19 [Rx] Chlorthalidone 25 mg PO DAILY #1 tab 04/02/19 [Rx] Follow up Appointment(s)/Referral(s): Vernon Gutierres MD [Primary Care Provider] - 3 Days Praveen Amador MD [STAFF PHYSICIAN] - 1 Week Discharge Disposition: HOME SELF-CARE
== END 2019-04-02 12:35 | disposition home or self-care (01) ==
LOC: EC 12:41 → 3SCARD 16:13
PROVIDERS: ADMIT Hospitalist; ATTEND Hospitalist
DX: G45.4 Transient global amnesia (principal); Z72.820 Sleep deprivation; E66.9 Obesity, unspecified; Z68.33 Body mass index [BMI] 33.0-33.9, adult; E78.00 Pure hypercholesterolemia, unspecified; E78.5 Hyperlipidemia, unspecified; I10 Essential (primary) hypertension; Z87.891 Personal history of nicotine dependence; Z86.73 Personal history of transient ischemic attack (TIA), and cerebral infarction without residual deficits; Z80.1 Family history of malignant neoplasm of trachea, bronchus and lung; Z80.51 Family history of malignant neoplasm of kidney; Z82.0 Family history of epilepsy and other diseases of the nervous system; Z82.3 Family history of stroke
CPT/HCPCS: 96360; 96361; 99285; 36415; 95816; 93005; 93306; 80053; 82140; 82550; 83735; 84484; 85025; 85610; 85730; 81003; 80306; 71046; 93880; 70450; 70553; G0378 ×3; A9585; Q9950

== ENCOUNTER → 2023-01-31 | Outpatient (CLI) | payer BC | END | disposition home or self-care (01) | LOC: LABWHC1 08:14 | PROVIDERS: ATTEND Family Medicine | DX: Z00.01 Encounter for general adult medical examination with abnormal findings (principal) | CPT/HCPCS: 36415; 84153 ==

== ENCOUNTER → 2023-02-28 | Outpatient (CLI) | payer BC ==
[2023-02-28 13:35] LABS: Chol/HDL Ratio 5.86 Ratio; LDL Cholesterol,Calculated 164.9 mg/dL (0.0-131.0)
== END | disposition home or self-care (01) ==
LOC: LABWHC1 08:07
PROVIDERS: ATTEND Family Medicine
DX: Z00.01 Encounter for general adult medical examination with abnormal findings (principal)
CPT/HCPCS: 36415; 80061

== ENCOUNTER → 2025-03-18 | Outpatient (CLI) | payer BC ==
[2025-03-18 12:47] LABS: Basophils # (A) 0.04 X 10*3/uL (0.00-0.10); Basophils % (A) 0.7 %; Eosinophils # (A) 0.11 X 10*3/uL (0.04-0.35); HCT 50.5 % (39.6-50.0); HGB 16.2 g/dL (13.0-17.0); Lymphocytes % (A) 28.7 %; MCH 28.3 pg (27.0-32.0); MCHC 32.1 g/dL (32.0-37.0); MCV 88.1 FL (80.0-97.0); Mean Platelet Volume 9.8 FL (9.5-12.2); Monocytes # (A) 0.49 X 10*3/uL (0.20-1.00); Monocytes % (A) 8.8 %; NRBC Per 100 WBC 0 X 10*3/uL (0.00-0.01); Neutrophils # (A) 3.31 X 10*3/uL (1.80-7.70); Neutrophils % (A) 59.4 %; Platelet Count 211 X 10*3/uL (140-440); RBC 5.73 X 10*6/uL (4.40-5.60); RDW 12.5 % (11.5-14.5); WBC 5.57 X 10*3/uL (4.50-10.00)
[2025-03-18 13:06] LABS: ALT 26 U/L (10-49); AST 22 U/L (14-35); Albumin 4.3 g/dL (3.8-4.9); Albumin/Globulin Ratio 2.05 Ratio (1.60-3.17); Alkaline Phosphatase 86 U/L (41-126); Blood Urea Nitrogen 12.7 mg/dL (9.0-27.0); Calcium 9.1 mg/dL (8.7-10.3); Carbon Dioxide 26.4 mmol/L (21.6-31.8); Chloride 104 mmol/L (96-109); Chol/HDL Ratio 5.09 Ratio; Globulin 2.1 g/dL (1.6-3.3); Glucose 120 mg/dL (70-110); LDL Cholesterol,Calculated 161.4 mg/dL (0.0-131.0); Potassium 4.6 mmol/L (3.5-5.5); Prostate Specific Antigen 0.28 ng/mL (0.000-3.500); Sodium 140 mmol/L (135-145); Total Bilirubin 0.4 mg/dL (0.3-1.2); Total Protein 6.4 g/dL (6.2-8.2)
== END | disposition home or self-care (01) ==
LOC: LABWHC1 07:42
PROVIDERS: ATTEND Family Medicine
DX: E11.9 Type 2 diabetes mellitus without complications (principal); Z00.01 Encounter for general adult medical examination with abnormal findings
CPT/HCPCS: 36415; 80053; 80061; 82043; 82570; 83036; 84153; 84443; 85025